=== PATIENT | male | born 1995 | race Caucasian/White ===

== ENCOUNTER 2024-11-21 02:54 | Emergency (ER) | payer BC ==
[2024-11-21 02:59] VITALS: TEMP 97.4
[2024-11-21] MEDS ORDERED: MORPHINE SULFATE 4 MG/ML SYRINGE IVP STA (03:16)
[2024-11-21] MEDS: LORazepam 1 MG/0.5 ML VIAL IV STA (03:31)
[2024-11-21] MEDS: ONDANSETRON 4 MG/2 ML VIAL IVP STA (03:32)
[2024-11-21] MEDS: PANTOPRAZOLE 40 MG/10 ML VIAL IVP STA (03:33)
[2024-11-21 03:35] LABS: Basophils # (A) 0.08 10*3/uL (0.00-0.10); Basophils % (A) 0.5 %; Eosinophils # (A) 0.07 10*3/uL (0.04-0.35); Eosinophils % (A) 0.4 %; HCT 43.3 % (39.6-50.0); HGB 15.2 g/dL (13.0-17.0); Lymphocytes # (A) 2.82 10*3/uL (0.90-5.00); Lymphocytes % (A) 17.1 %; MCH 29.7 pg (27.0-32.0); MCHC 35.1 g/dL (32.0-37.0); MCV 84.7 fL (80.0-97.0); Monocytes # (A) 0.94 10*3/uL (0.20-1.00); Monocytes % (A) 5.7 %; Neutrophils # (A) 12.51 10*3/uL (1.80-7.70); Neutrophils % (A) 76.1 %; Platelet Count 364 10*3/uL (140-440); RBC 5.11 10*6/uL (4.40-5.60); RDW 11.7 % (11.5-14.5); WBC 16.46 10*3/uL (4.50-10.00)
[2024-11-21] MEDS: SODIUM CHLORIDE 0.9% 1,000 ML IV SCH (03:36)
[2024-11-21 03:46] LABS: ALT 38 U/L (4-49); AST 39 U/L (17-59); African American GFR (CKD) >90 (>60 ml/min/1.73 sqM); Albumin 5.6 g/dL (3.5-5.0); Alkaline Phosphatase 77 U/L (38-126); Amylase 71 U/L (30-110); Anion Gap 17 mmol/L; Blood Urea Nitrogen 20 mg/dL (9-20); Calcium 11.0 mg/dL (8.4-10.2); Carbon Dioxide 24 mmol/L (22-30); Chloride 98 mmol/L (98-107); Glucose 137 mg/dL (74-99); Lipase 57 U/L (23-300); Non-African American GFR(CKD) >90 (>60 ml/min/1.73 sqM); Sodium 139 mmol/L (137-145); Total Protein 8.5 g/dL (6.3-8.2)
[2024-11-21 03:58] LABS: INR 1.0 (<1.2); Partial Thromboplastin Time 21.3 sec (22.0-30.0); Prothrombin Time 11.3 sec (10.0-12.5)
[2024-11-21 04:10] LABS: Potassium 4.0 mmol/L (3.5-5.1)
[2024-11-21] MEDS: SODIUM CHLORIDE 0.9% 1,000 ML IV STA (05:00)
--- NOTE | 2024-11-21 05:55 | CT ---
EXAMINATION TYPE: CT abdomen pelvis w con DATE OF EXAM: 11/21/2024 COMPARISON: NONE CLINICAL INDICATION: Male, 29 years old with history of abdominal pain, generalized with n/v, TECHNIQUE: CT scan of the abdomen and pelvis is performed with IV Contrast, patient injected with 100ML mL of Is ovue 370., (none if empty) Oral contrast used: without Oral Contrast (none if empty) CT DLP: 916.7 mGycm, Automated exposure control for dose reduction was used. FINDINGS: LUNG BASES: No significant abnormality is appreciated. LIVER/GB: No significant abnormality is appreciated. PANCREAS: No significant abnormality is seen. SPLEEN: No significant abnormality is seen. ADRENALS: No significant abnormality is seen. KIDNEYS: No significant abnormality is seen. BOWEL: Slightly suboptimal evaluation without enteric contrast and patient having little internal fat . Moderately distended fluid-filled stomach is seen. Prominent fluid-filled small bowel loops through out the abdomen and pelvis are identified. No definitive greater than 3.0 cm dilatation. Fluid in the proximal colon is present which is abnormal finding. There is nondistended distal colon. No free air . No well-formed fluid collection or abscess seen. PROSTATE/SEMINAL VESICLES: Small amount of free fluid in the pelvis is abnormal finding axial image 7 2. Prostate gland is normal in size. LYMPH NODES: No greater than 1cm abdominal or pelvic lymph nodes are appreciated. OSSEOUS STRUCTURES: No significant abnormality is seen. OTHER: No significant additional abnormality is seen. IMPRESSION: 1. Fluid in the right colon is abnormal finding and could reflect products of a mild colitis and/or d iarrhea. 2. Fluid distended stomach and prominent fluid-filled small bowel loops raises concern for a diffuse ileus versus low-grade obstruction. No greater than 3.0 cm small bowel dilatation. 3. Small amount free fluid in pelvis is abnormal finding in male patient suspected related to bowel i ssues. [facility], Workstation: [facility], 11/21/2024 5:53 AM
--- NOTE | 2024-11-21 06:26 | ED ---
General Adult HPI - General Chief complaint: Abdominal Pain Stated complaint: Abd pain Time Seen by Provider: 11/21/24 03:05 Source: patient, RN notes reviewed, old records reviewed Mode of arrival: ambulatory Limitations: no limitations - History of Present Illness Initial comments: 29-year-old male presents emergency department complaining of abdominal pain with nausea and vomiting. Pain started this evening after eating food at a picnic. No other known sick contacts. No one else that ate the same food that he is aware of has similar complaints. States he has been admitted having severe abdominal cramping with nausea and vomiting. States emesis is nonbilious nonbloody. Has food chunks in it. Denies any diarrhea. Denies any co nstipation. Denies any history of abdominal surgeries. Does have a history of anxiety. Presents for further evaluation at this time. Denies chest pain or shortness of breath. No known sick contacts. - Related Data Previous Rx's Medication Instructions Recorded Dicyclomine [Bentyl] 10 mg PO TID PRN 7 Days #21 capsule 11/21/24 Allergies Allergy/AdvReac Type Severity Reaction Status Date / Time bee venom protein (honey bee) Allergy Swelling Verified 11/21/24 02:59 Review of Systems ROS Statement: Those systems with pertinent positive or pertinent negative responses have been documented in the HPI. Review of Systems: CONST: Denies fever EYES: Denies blurry vision ENT: Denies nasal congestion C/V: Denies Chest pain RESP: Denies shortness of breath GI: Endorses generalized abdominal discomfort and cramping. : Denies dysuria SKIN: Denies rash. MSK: Denies joint pain. NEURO: Denies headache ROS Other: All systems not noted in ROS Statement are negative. Past Medical History Past Medical History: No Reported History History of Any Multi-Drug Resistant Organisms: None Reported Past Surgical History: No Surgical Hx Reported Past Psychological History: Anxiety Smoking Status: Never smoker Past Alcohol Use History: Occasional Past Drug Use History: Marijuana General Exam - General Exam Comments Initial Comments: General: Appears anxious. HEAD: Normal with no signs of head trauma. EYES: PERRLA, EOMI, conjunctiva normal, no discharge. ENT: Hearing grossly intact, normal oropharynx. RESPIRATORY: Clear breath sounds bilaterally. No wheezes, rales, or rhonchi. C/V: Regular rate and rhythm. S1 and S2 auscultated, no edema, peripheral pulses 2+ and intact throughout ABD: Abdomen soft, nondistended. Generalized tenderness to palpation. No guarding or rebound tenderness. No peritoneal signs. EXT: Normal range of motion, no obvious deformity SKIN: No rashes or lesions observed on exposed skin. NEURO: Alert and oriented x 4. Cranial nerves II-XII intact. No focal sensory or strength deficits. Limitations: no limitations Course Vital Signs 11/21/24 11/21/24 11/21/24 02:57 03:50 04:00 Temperature 97.4 F L Pulse Rate 72 62 53 L Respiratory 18 16 16 Rate Blood Pressure 117/60 127/79 123/81 O2 Sat by Pulse 100 100 100 Oximetry 11/21/24 05:00 Temperature Pulse Rate 56 L Respiratory 18 Rate Blood Pressure 128/83 O2 Sat by Pulse 100 Oximetry Medical Decision Making - Medical Decision Making Was pt. sent in by a medical professional or institution (, PA, INDUSTRIAL SPRAY PAINTER, urgent care, hospital, or long-term...) When possible be specific @ -No Did you speak to anyone other than the patient for history (EMS, parent, family, police, friend...)? What history was obtained from this source @ -No Did you review nursing and triage notes (agree or disagree)? Why? @ -I reviewed and agree with nursing and triage notes Were old charts reviewed (outside hosp., previous admission, EMS record, old EKG, old radiological studies, urgent care reports/EKG's, long-term records)? Report findings @ -No old charts were reviewed Differential Diagnosis (chest pain, altered mental status, abdominal pain women, abdominal pain men, vaginal bleeding, weakness, fever, dyspnea, syncope, headache, dizziness, GI bleed, back pain, seizure, CVA, palpatations, mental health, musculoskeletal)? @ -Differential Abdominal Pain Men: Appendicitis, cholecystitis, diverticulosis, ischemic bowel, pancreatitis, hepatitis, UTI, gastroenteritis, AAA, incarcerated hernia, bowel obstruction, constipation, inflammatory bowel, hepatitis, peptic ulcer disease, splenic infarction, perforated viscus, testicular torsion, this is not meant to be an all-inclusive list EKG interpreted by me (3pts min.). @ -As above X-rays interpreted by me (1pt min.). @ -None done CT interpreted by me (1pt min.). @ -CT abdomen pelvis shows findings consistent with suspected colitis/enteritis since he has fluid in his colon, stomach. Radiology states cannot definitively rule out ileus versus low-grade obstruction. Small amount of free fluid in the pelvis which radiology is stating is an abnormal finding. U/S interpreted by me (1pt. min.). @ -None done What testing was considered but not performed or refused? (CT, X-rays, U/S, labs)? Why? @ -None What meds were considered but not given or refused? Why? @ -None Did you discuss the management of the patient with other professionals (professionals i.e. DrAbbey, PA, INDUSTRIAL SPRAY PAINTER, lab, RT, psych nurse, dialysis social worker, sales branch manager, teacher, special forces warrant officer, mattress spring encaser)? Give summary @ -Discussed CT abdomen/pelvis findings with Dr. Irizarry who is on-call for surgery. She states it is likely secondary to gastroenteritis and was in agreement the plan for 2 L fluid bolus which patient already received in good fluid hydration at home. Recommended follow-up with PCP in the upcoming days. Was smoking cessation discussed for >3mins.? @ -No Was critical care preformed (if so, how long)? @ -No Were there social determinants of health that impacted care today? How? (Homelessness, low income, unemployed, alcoholism, drug addiction, transportation, low edu. Level, literacy, decrease access to med. care, group home, rehab)? @ -No Was there de-escalation of care discussed even if they declined (Discuss DNR or withdrawal of care, Hospice)? DNR status @ -No What co-morbidities impacted this encounter? (DM, HTN, Smoking, COPD, CAD, Cancer, CVA, ARF, Chemo, Hep., AIDS, mental health diagnosis, sleep apnea, morbid obesity)? @ -None Was patient admitted / discharged? Hospital course, mention meds given and route, prescriptions, significant lab abnormalities, going to OR and other pertinent info. @ -Based on patient's presentation physical exam, presents emergency department with severe abdominal pain. Started this evening. Attributes it to food he ate at a picnic. Vital signs within acceptable limits. Does appear anxious. Will obtain abdominal workup with CT imaging. Patient given IV Zofran, Protonix, analgesia meds. Also given IV fluids. He was in agreement this plan. Received a total of 2 L fluid bolus. After IV was placed, patient did have a panic attack. Was tense, stating that his arms and his legs were cramping. At this time patient was administered 1 mg of IV Ativan which resolved all the symptoms. He is feeling improved afterwards. Does state he has a history of severe anxiety and takes Xanax as needed for panic attacks. Discussed with him the seem to be what was causing his current symptoms. Patient's labs are remarkable for a leukocytosis of 16. Lactic acid within normal limits. Slight elevation in creatinine kinase 375 which was treated with the multiple boluses of IV fluids. CT imaging showed findings consistent with gastroenteritis as well as a small amount of free fluid in the pelvis. Discussed CT abdomen/pelvis findings with Dr. Irizarry who is on-call for surgery. She states it is likely secondary to gastroenteritis and was in agreement the plan for 2 L fluid bolus which patient already received in good fluid hydration at home. Recommended follow-up with PCP in the upcoming days. I updated the patient. He is tolerating oral intake and has minimal if any abdominal discomfort. He was in agreement plan for follow-up with PCP and discharged home. Strict return precautions discussed. I will provide the patient with a prescription for starter pack of ODT Zofran, starter pack of Tylenol 3, Bentyl. I instructed the patient to follow up with [facility] PCP in the next 1-3 days.. I explained that the patient should return to the emergency department if they experience any worsening symptoms. Strict return precautions were discussed with the patient. The patient expressed understanding of these instructions. I answered all questions that the patient had. The patient was discharged home in good condition with their prescriptions and follow up information. Undiagnosed new problem with uncertain prognosis? @ -No Drug Therapy requiring intensive monitoring for toxicity (Heparin, Nitro, Insulin, Cardizem)? @ -No Were any procedures done? @ -No Diagnosis/symptom? @ -Gastroenteritis, panic attack, Nausea and vomiting, dehydration Acute, or Chronic, or Acute on Chronic? @ -Acute Uncomplicated (without systemic symptoms) or Complicated (systemic symptoms)? @ -Complicated Side effects of treatment? @ -No Exacerbation, Progression, or Severe Exacerbation? @ -No Poses a threat to life or bodily function? How? (Chest pain, USA, VT, pneumonia, PE, COPD, DKA, ARF, appy, cholecystitis, CVA, Diverticulitis, Homicidal, Suicidal, threat to staff... and all critical care pts) @ -Unlikely at this time - Lab Data Result diagrams: 11/21/24 03:11 11/21/24 03:11 Lab Results 11/21/24 11/21/24 11/21/24 Range/Units 03:11 03:11 03:11 WBC 16.46 H (4.50-10.00) 10*3/uL RBC 5.11 (4.40-5.60) 10*6/uL Hgb 15.2 (13.0-17.0) g/dL Hct 43.3 (39.6-50.0) % MCV 84.7 (80.0-97.0) fL MCH 29.7 (27.0-32.0) pg MCHC 35.1 (32.0-37.0) g/dL Plt Count 364 (140-440) 10*3/uL MPV 9.4 L (9.5-12.2) fL Immature Gran % (Auto) 0.2 % Neutrophils % 76.1 % Lymphocytes % 17.1 % Monocytes % 5.7 % Eosinophils % 0.4 % Basophils % 0.5 % Immature Gran # 0.04 (0.00-0.04) 10*3/uL Neutrophils # 12.51 H (1.80-7.70) 10*3/uL Lymphocytes # 2.82 (0.90-5.00) 10*3/uL Monocytes # 0.94 (0.20-1.00) 10*3/uL Eosinophils # 0.07 (0.04-0.35) 10*3/uL Basophils # 0.08 (0.00-0.10) 10*3/uL PT 11.3 (10.0-12.5) sec INR 1.0 (<1.2) APTT 21.3 L (22.0-30.0) sec Sodium 139 (137-145) mmol/L Potassium 4.0 (3.5-5.1) mmol/L Chloride 98 (98-107) mmol/L Carbon Dioxide 24 (22-30) mmol/L Anion Gap 17 mmol/L BUN 20 (9-20) mg/dL Creatinine 1.08 (0.66-1.25) mg/dL Est GFR (CKD-EPI)AfAm >90 (>60 ml/min/1.73 sqM) Est GFR (CKD-EPI)NonAf >90 (>60 ml/min/1.73 sqM) Glucose 137 H (74-99) mg/dL Plasma Lactic Acid Rayshawn (0.7-2.0) mmol/L Calcium 11.0 H (8.4-10.2) mg/dL Total Bilirubin 0.7 (0.2-1.3) mg/dL AST 39 (17-59) U/L ALT 38 (4-49) U/L Alkaline Phosphatase 77 (38-126) U/L Creatine Kinase (55-170) U/L Total Protein 8.5 H (6.3-8.2) g/dL Albumin 5.6 H (3.5-5.0) g/dL Amylase 71 (30-110) U/L Lipase 57 (23-300) U/L 11/21/24 11/21/24 Range/Units 03:11 03:30 WBC (4.50-10.00) 10*3/uL RBC (4.40-5.60) 10*6/uL Hgb (13.0-17.0) g/dL Hct (39.6-50.0) % MCV (80.0-97.0) fL MCH (27.0-32.0) pg MCHC (32.0-37.0) g/dL Plt Count (140-440) 10*3/uL MPV (9.5-12.2) fL Immature Gran % (Auto) % Neutrophils % % Lymphocytes % % Monocytes % % Eosinophils % % Basophils % % Immature Gran # (0.00-0.04) 10*3/uL Neutrophils # (1.80-7.70) 10*3/uL Lymphocytes # (0.90-5.00) 10*3/uL Monocytes # (0.20-1.00) 10*3/uL Eosinophils # (0.04-0.35) 10*3/uL Basophils # (0.00-0.10) 10*3/uL PT (10.0-12.5) sec INR (<1.2) APTT (22.0-30.0) sec Sodium (137-145) mmol/L Potassium (3.5-5.1) mmol/L Chloride (98-107) mmol/L Carbon Dioxide (22-30) mmol/L Anion Gap mmol/L BUN (9-20) mg/dL Creatinine (0.66-1.25) mg/dL Est GFR (CKD-EPI)AfAm (>60 ml/min/1.73 sqM) Est GFR (CKD-EPI)NonAf (>60 ml/min/1.73 sqM) Glucose (74-99) mg/dL Plasma Lactic Acid Rayshawn 1.5 (0.7-2.0) mmol/L Calcium (8.4-10.2) mg/dL Total Bilirubin (0.2-1.3) mg/dL AST (17-59) U/L ALT (4-49) U/L Alkaline Phosphatase (38-126) U/L Creatine Kinase 375 H (55-170) U/L Total Protein (6.3-8.2) g/dL Albumin (3.5-5.0) g/dL Amylase (30-110) U/L Lipase (23-300) U/L - EKG Data -: EKG Interpreted by Me EKG Comments: 12-lead Electrocardiogram Interpretation Note EKG was reviewed and interpreted by myself. 12-lead ECG performed at 0327 is int erpreted by me as revealing sinus tachycardia at a rate of 154 beats per minute. [place] is normal. TX interval is 105 ms, QRS duration is 87 ms, QTc is 402 ms.. There were no ST or T wave abnormalities to suggest myocardial ischemia or injury. R wave progression across the precordium was satisfactory. By my interpretation this EKG is non-diagnostic for acute ischemia. 12-lead Electrocardiogram Interpretation Note EKG was reviewed and interpreted by myself. 12-lead ECG performed at 0340 is i nterpreted by me as revealing normal sinus rhythm at a rate of 64 beats per minute. [place] is normal. TX interval is 152 ms, QRS durations 90 ms, QTc is 429 ms.. There were no ST or T wave abnormalities to suggest myocardial ischemia or injury. R wave progression across the precordium was satisfactory. By my interpretation this EKG is non-diagnostic for acute ischemia. Disposition Clinical Impression: Gastroenteritis, Nausea and vomiting, Dehydration, Panic attack Disposition: ADMITTED IP TO THIS HOSP Condition: Stable Prescriptions: Dicyclomine [Bentyl] 10 mg PO TID PRN 7 Days #21 capsule PRN Reason: Pain Is patient prescribed a controlled substance at d/c from ED?: No Referrals: Danilo Crawford MD [Primary Care Provider] - 1-2 days Milagro Peraza MD [STAFF PHYSICIAN] - 1-2 days Time of Disposition: 06:20
[2024-11-21] MEDS: ONDANSETRON 4 MG ODT STARTER PACK 2 TAB BTL PO STA (06:35)
[2024-11-21] MEDS: ACET/COD 300 MG/30 MG STARTER PACK 6 TAB BTL PO STA (06:37)
[2024-11-21 06:41] VITALS: BP 112/69; PULSE 75; RESP 16
== END 2024-11-21 06:42 | disposition other institution (70) ==
LOC: EC 02:54
DX: K52.9 Noninfective gastroenteritis and colitis, unspecified (principal); F41.0 Panic disorder [episodic paroxysmal anxiety]; E86.0 Dehydration; Z91.030 Bee allergy status
CPT/HCPCS: 36415; 93005; 80053; 82150; 82550; 83605; 83690; 85025; 85610; 85730; 74177; 99285; 96374; 96375 ×2; 96361; J2060; J2405; S0119; Q9967; J2470